=== PATIENT | female | born 1995 | race Caucasian/White ===

== ENCOUNTER 2020-02-08 03:39 | Emergency (ER) | payer SELFPAY ==
[2020-02-08] MEDS ORDERED: ONDANSETRON 4 MG TAB.RAPDIS PO ONE (06:40)
[2020-02-08 07:19] LABS: ABSOLUTE LYMPHOCYTES (AUTO) 0.9 10^3/uL (0.5-4.7); ABSOLUTE MONOCYTES (AUTO) 0.5 10^3/uL (0.1-1.4); BASOPHILS % (AUTO) 0.2 % (0-2); EOSINOPHILS % (AUTO) 0.1 % (0-6); HEMATOCRIT 39.3 % (36.0-47.0); HEMOGLOBIN 13.6 g/dL (12.0-15.5); LYMPHOCYTES % (AUTO) 8.3 % (13-45); MEAN CORPUSCULAR HEMOGLOBIN 31.8 pg (27.0-33.4); MEAN CORPUSCULAR HGB CONC 34.5 g/dL (32.0-36.0); MEAN CORPUSCULAR VOLUME 92 fl (80-97); MONOCYTES % (AUTO) 3.9 % (3-13); PLATELET COUNT 254 10^3/uL (150-450); RED BLOOD COUNT 4.27 10^6/uL (3.72-5.28); RED CELL DISTRIBUTION WIDTH 12.6 % (11.5-14.0); SEGMENTED NEUTROPHILS % (AUTO) 87.5 % (42-78); TOTAL CELLS COUNTED % (AUTO) 100 %; WHITE BLOOD COUNT 11.4 10^3/uL (4.0-10.5)
[2020-02-08 07:26] LABS: ALBUMIN 4.4 g/dL (3.5-5.0); ALKALINE PHOSPHATASE 80 U/L (38-126); ANION GAP 7 (5-19); ASPARTATE AMINO TRANSFERASE 144 U/L (14-36); BILIRUBIN,DIRECT 0.3 mg/dL (0.0-0.4); BILIRUBIN,TOTAL 0.9 mg/dL (0.2-1.3); BLOOD UREA NITROGEN 13 mg/dL (7-20); CALCIUM 9.8 mg/dL (8.4-10.2); CARBON DIOXIDE 28 mmol/L (22-30); CHLORIDE 105 mmol/L (98-107); GLUCOSE 114 mg/dL (75-110); POTASSIUM 4.4 mmol/L (3.6-5.0); TOTAL PROTEIN 7.6 g/dL (6.3-8.2)
--- NOTE | 2020-02-08 07:47 | RADIOLOGY REPORT (SQ) ---
CHEST X-RAY 2 view on 02/08/2020 at 7:03 AM CLINICAL INDICATION: Shortness of breath COMPARISON: None FINDINGS: The lungs are clear. Cardiac, hilar and mediastinal contours are within normal limits. Pulmonary vascularity is within normal limits. No bony abnormality is noted. IMPRESSION: No active disease.
[2020-02-08] MEDS ORDERED: ONDANSETRON HCL INJ/PF 4 MG/2 ML SDV IV ONE (09:58)
[2020-02-08] MEDS ORDERED: SUCRALFATE 1 GM TABLET PO ONE (09:58)
[2020-02-08] MEDS ORDERED: NORMAL SALINE 1000 ML 1,000 ML IV ONE (09:58)
[2020-02-08] MEDS ORDERED: FAMOTIDINE 20 MG TABLET PO ONE (09:58)
--- NOTE | 2020-02-08 10:01 | ER Document Report ---
ED General - General Chief Complaint: Abdominal Pain Stated Complaint: TROUBLE BREATHING Time Seen by Provider: 02/08/20 09:51 Notes: Patient is a 24-year-old female that comes emergency department for chief complaint of persistent vomiting last night with shaking chills. She reports generalized upper abdominal pain, worse on the left. Patient states that the last episode that she vomited there was trace blood and she felt like she could not breathe so she became concerned, relative called ambulance and she came in by EMS. She was given 4 mg ODT Zofran which did significantly help her symptoms. She denies any current pain, denies shortness of breath, denies any current symptoms. She has a history of tubal ligation, is currently on clindamycin for dental infection, she denies any medical history otherwise. She denies alcohol, recreational drugs. She does smoke. - Related Data Allergies/Adverse Reactions: Penicillins Allergy (Mild, Verified 02/02/20 23:55) sulfamethoxazole [From Septra] Allergy (Mild, Verified 02/02/20 23:55) trimethoprim [From Septra] Allergy (Mild, Verified 02/02/20 23:55) Home Medications: clindamycin, kcl, motrin, omeprazole, claritin Past Medical History - General Information source: Patient - Social History Smoking Status: Current Every Day Smoker Smoking Education Provided: Yes - <3 min Frequency of alcohol use: None Drug Abuse: None Lives with: Family Family History: Reviewed & Not Pertinent Surgical Hx: Negative - Immunizations Immunizations up to date: Yes Hx Diphtheria, Pertussis, Tetanus Vaccination: Yes Review of Systems - Review of Systems Constitutional: No symptoms reported EENT: No symptoms reported Cardiovascular: See HPI Respiratory: See HPI Gastrointestinal: See HPI Genitourinary: No symptoms reported Female Genitourinary: No symptoms reported Musculoskeletal: No symptoms reported Skin: No symptoms reported Hematologic/Lymphatic: No symptoms reported Neurological/Psychological: No symptoms reported Physical Exam - Vital signs Vitals: Temp Pulse Resp Pulse Ox 98.1 F 80 16 99 02/08/20 03:59 02/08/20 03:59 02/08/20 03:59 02/08/20 03:59 - Notes Notes: GENERAL: Alert, interacts well. No acute distress. HEAD: Normocephalic, atraumatic. EYES: Pupils equal, round, and reactive to light. Extraocular movements intact. ENT: Oral mucosa moist, tongue midline. Oropharynx unremarkable. Airway patent. NECK: Full range of motion. Supple. Trachea midline. No lymphadenopathy. LUNGS: Clear to auscultation bilaterally, no wheezes, rales, or rhonchi. No respiratory distress. Non-tender chest wall. HEART: Regular rate and rhythm. No murmur ABDOMEN: There is mild tenderness over left upper quadrant, remaining abdomen is soft benign, bowel sounds present throughout. No distention. EXTREMITIES: Moves all 4 extremities spontaneously. No edema, normal radial and dorsalis pedis pulses bilaterally. No cyanosis. BACK: no cervical, thoracic, lumbar midline tenderness. No saddle anesthesia, normal distal neurovascular exam. Moves all extremities in full range of motion. NEUROLOGICAL: Alert and oriented x3. Normal speech. Cranial nerves II through XII grossly intact. Strength 5/5 in all extremities. PSYCH: Normal affect, normal mood. SKIN: Warm, dry, normal turgor. No rashes or lesions noted. Course - Re-evaluation Re-evalutation: Patient with mild left upper quadrant pain, multiple episodes of vomiting, reported trace blood in the vomit after vomiting multiple times. On evaluation she is very well-appearing. Completely nontender right upper quadrant. CBC shows mild leukocytosis with elevation of neutrophils but no bandemia. Hemoglobin unremarkable. Chemistry shows mildly elevated LFTs with AST greater than ALT. Unremarkable alk phos, bilirubin, lipase. Based on her evaluation I have a strong suspicion of gastritis. Chest x-ray and EKG unremarkable but patient has no symptoms or findings on my evaluation suggesting intrathoracic etiology. When I reevaluated patient to discuss her findings after medications patient was eating chips at bedside and asking to go home. Low suspicion of acute abdomen. I also low suspicion of infection. Discussed gastritis, recommendations, follow-up, return precautions. Patient states understanding and agreement. - Vital Signs Vital signs: Temp Pulse Resp BP Pulse Ox 98.5 F 84 20 104/70 100 02/08/20 12:53 02/08/20 12:53 02/08/20 12:53 02/08/20 12:53 02/08/20 12:53 - Laboratory Results Result Diagrams: 02/08/20 06:52 02/08/20 06:52 Laboratory Results Interpreted: 02/08/20 02/08/20 06:52 06:52 WBC 11.4 H Lymph % (Auto) 8.3 L Absolute Neuts (auto) 10.0 H Seg Neutrophils % 87.5 H Glucose 114 H AST 144 H ALT 82 H Critical Laboratory Results Reviewed: No Critical Results - Radiology Results Critical Radiology Results Reviewed: No Critical Results - EKG Interpretation by Me Additional EKG results interpreted by me: EKG shows sinus rhythm at a rate of 69, normal axis, QTC 390, no T wave inversions or ST segment changes in consecutive leads Discharge - Discharge Clinical Impression: Vomiting Qualifiers: Vomiting type: unspecified Vomiting Intractability: non-intractable Nausea presence: with nausea Qualified Code(s): R11.2 - Nausea with vomiting, unspecified Abdominal pain Qualifiers: Abdominal location: generalized Qualified Code(s): R10.84 - Generalized abdominal pain Condition: Stable Disposition: HOME, SELF-CARE Additional Instructions: You have been treated for vomiting and dehydration. Your liver function tests are slightly elevated and need to be rechecked, however your remaining test did not show any concerning findings. This is most likely gastritis, inflammation of your upper gastrointestinal tract. Take Phenergan for nausea, take Carafate and Pepcid as prescribed to help treat this, you can take additional Rolaids, Tums, Maalox, etc. if needed. You can take Tylenol for pain. Avoid NSAIDs, alcohol, smoking, caffeine, spicy food. Start with clear fluids, progress to bland diet. This should heal with time. Follow-up with primary care for additional evaluation and treatment including possible H. pylori testing. Return if you worsen including uncontrolled vo miting, vomiting blood, black stools, severe pain, fever of 100.4 or greater, or any other concerning or worsening symptoms. Prescriptions: Sucralfate [Carafate 1 gm Tablet] 1 gm PO QID #20 tablet Famotidine [Pepcid 20 mg Tablet] 20 mg PO BID #20 tablet Promethazine HCl [Phenergan 25 mg Tablet] 25 mg PO Q6H PRN #20 tablet PRN Reason: Forms: Return to Work
[2020-02-08 12:20] LABS: APPEARANCE,URINE CLEAR; BILIRUBIN,URINE NEGATIVE (NEGATIVE); COLOR,URINE STRAW; GLUCOSE, URINE NEGATIVE (NEGATIVE); KETONES,URINE NEGATIVE (NEGATIVE); LEUKOCYTE ESTERASE,URINE NEGATIVE (NEGATIVE); NITRITE,URINE NEGATIVE (NEGATIVE); PROTEIN,URINE NEGATIVE (NEGATIVE); URINE SPECIFIC GRAVITY 1.008; UROBILINOGEN,URINE NEGATIVE mg/dL (<2.0)
[2020-02-08 12:53] VITALS: BP 104/70
--- NOTE | 2020-02-08 21:24 | EKG REPORT ---
SEVERITY:- NORMAL ECG - SINUS RHYTHM : Confirmed by: Adwoa More MD 08-Feb-2020 21:23:32
== END 2020-02-08 12:59 | disposition home or self-care (01) ==
LOC: ER 03:39
DX: R10.84 Generalized abdominal pain (principal); R10.812 Left upper quadrant abdominal tenderness; K92.0 Hematemesis; R68.83 Chills (without fever); D72.828 Other elevated white blood cell count; R74.01 Elevation of levels of liver transaminase levels; F17.200 Nicotine dependence, unspecified, uncomplicated; K04.7 Periapical abscess without sinus; Z79.1 Long term (current) use of non-steroidal anti-inflammatories (NSAID); Z79.899 Other long term (current) drug therapy; Z98.51 Tubal ligation status; Z88.0 Allergy status to penicillin; Z88.1 Allergy status to other antibiotic agents
CPT/HCPCS: 93005; 99285; 96361; 96374; 36415; 83690; 84703; 85025; 80053; 81001; 71046; 93010; S0119; J2405; J7030